=== PATIENT | male | born 1965 | race Caucasian/White ===

== ENCOUNTER 2018-05-20 17:58 | Observation (INO) ==
--- NOTE | 2018-05-20 18:15 | Emergency Department Note ---
Disposition Clinical Impression: Chest pain Qualifiers: Chest pain type: unspecified Qualified Code(s): R07.9 - Chest pain, unspecified Disposition: Admitted As Inpatient Condition: Undetermined Referrals: Kinjal Kowalski CNP [Primary Care Provider] - Forms: ED Satisfaction Letter Time of Disposition: 19:33 Chest Pain HPI - General Chief Complaint: ED Chest Pain Stated Complaint: Chest Pain Time Seen by Provider: 05/20/18 18:07 Source: patient, EMS Mode of arrival: EMS Limitations: no limitations Vital Signs Reviewed: Yes Nursing Notes Reviewed: Yes - History of Present Illness HPI Narrative: 52-year-old male with history of hypertension, hyperlipidemia, CAD, as the emergency department if your chest pain with associated shortness of breath. The patient states he took 2 nitroglycerin and aspirin. He states his pain is prior to resolved at this time. The patient states he went to get checked out for further evaluation. Patient denies any unilateral leg swelling, recent surgeries or immobilizations, hemoptysis, history DVT or PE. Patient is resting comfortably in the room at this time without any chest pain. Patient denies any other complaints. - Related Data Home Medications Medication Instructions Recorded Confirmed Atorvastatin [Lipitor] 20 mg PO HS 11/25/14 07/09/17 Diazepam [Valium] 10 mg PO TID 11/25/14 07/09/17 Gabapentin [Neurontin] 800 mg PO QID 11/25/14 07/09/17 Insulin Glargine,Hum.rec.anlog 60 unit SQ HS 11/25/14 07/09/17 [Lantus Solostar] Metformin [Glucophage] 1,000 mg PO BID 11/25/14 07/09/17 OxyCODONE/APAP 10/325 [Percocet 1 tab PO Q4H PRN 11/25/14 07/09/17 10/325 MG] Chlorthalidone 25 mg PO DAILY 02/26/16 07/09/17 Insulin ASPART [NovoLOG] 10 unit SQ TIDWM 02/26/16 07/09/17 Lisinopril [Zestril] 20 mg PO DAILY 02/26/16 07/09/17 Metoprolol [Lopressor] 100 mg PO BID 02/26/16 07/09/17 Propranolol HCl [Inderal LA] 160 mg PO DAILY 02/26/16 07/09/17 Aspirin 325 mg PO DAILY 03/10/17 07/09/17 Dicyclomine [Bentyl] 10 mg PO TID 03/10/17 07/09/17 Pantoprazole Sodium [Protonix] 40 mg PO BID 03/10/17 07/09/17 Paroxetine HCl [Paxil] 40 mg PO DAILY 03/10/17 07/09/17 Ziprasidone HCl [Geodon] 80 mg PO BID 03/10/17 07/09/17 Previous Rx's Medication Instructions Recorded Clindamycin [Cleocin] 300 mg PO TID #60 capsule 03/27/17 Clindamycin [Cleocin] 150 mg PO Q6HR #40 capsule 07/09/17 cephALEXin [Keflex] 1,000 mg PO BID #40 capsule 07/09/17 Sucralfate [Carafate] 1 gm PO QID #400 ml 10/09/17 Allergies Allergy/AdvReac Type Severity Reaction Status Date / Time Iodinated Contrast- Oral and Allergy Vomiting Verified 07/09/17 19:48 IV Dye [Iodinated Contrast Media - IV Dye] Penicillins Allergy Swelling Verified 07/09/17 19:48 of the Eye All systems ED: reviewed and negative except as stated. Constitutional: Denies: fever, chills, weakness ENT ED: Denies: dysphagia Cardiovascular: Reports: chest pain. Denies: dyspnea on exertion, edema, syncope Respiratory: Denies: cough, dyspnea, sputum production Gastrointestinal: Denies: abdominal pain, nausea, vomiting Genitourinary: Denies: urgency, dysuria Musculoskeletal: Denies: back pain Integumentary: Denies: rash Neurological: Denies: headache Chest Pain PMH - Past Medical History Medical history: Reports: arthritis, COPD, diabetes, hyperlipidemia, hypertension, other Surgical history: Reports: other (Prostate surgery, colonoscopy with polypectomy, negative cardiac catheterization) Psychiatric history: Reports: anxiety, bipolar, depression, panic disorder, schizophrenia - Social History Smoking Status: Never smoker Alcohol use: Reports: occasionally Drug use: Reports: none Physical Exam - General Limitations: no limitations General appearance: alert, in no apparent distress - Head Head exam: atraumatic, normocephalic, normal inspection - Eye Eye exam: Present: normal appearance, PERRL, EOMI - ENT ENT exam: normal exam, normal oropharynx, mucous membranes moist - Neck Neck exam: Present: normal inspection, full ROM, trachea midline - Chest Chest inspection: Present: normal inspection, symmetric chest wall rise - Respiratory Respiratory exam: Present: normal lung sounds bilaterally - Cardiovascular Cardiovascular exam: Present: regular rate, normal rhythm, normal heart sounds - Abdominal Exam Abdominal exam: Present: soft, Non-Tender. Absent: tenderness, distention, guarding, rebound, rigidity - Extremities Exam Extremities exam: Present: normal inspection, full ROM. Absent: tenderness, pe ck edema - Neurological Exam Neurological exam: Present: alert, oriented X3 - Skin Skin exam: Present: warm, dry, intact, normal color Course Vital Signs Temperature 98.8 F 05/20/18 18:16 Pulse Rate 93 05/20/18 18:16 Respiratory Rate 15 05/20/18 18:16 Blood Pressure 144/125 05/20/18 18:16 O2 Sat by Pulse Oximetry 99 05/20/18 18:16 Temperature 98.8 F 05/20/18 18:16 Pulse Rate 93 05/20/18 18:16 Respiratory Rate 15 05/20/18 18:16 Blood Pressure 144/125 05/20/18 18:16 O2 Sat by Pulse Oximetry 99 05/20/18 18:16 Oxygen Delivery Oxygen Delivery Room Air Chest Pain - MDM Narrative Medical decision making narrative: Patient's workup in the emergency department demonstrates no acute process. Troponin and EKG demonstrated no elevation or changes. Patient's chest x-ray unremarkable. We will admit the patient to the hospitalist at this time for further workup and care. He is chest pain-free and receive aspirin here in the emergency department. Patient made aware and agrees to plan. No further questions or concerns noted. Accepted by Dr. Manriquez. - Lab Data Lab results reviewed: Yes I reviewed the patient's lab results. Result diagrams: 05/20/18 18:42 05/20/18 18:42 Lab Results 05/20/18 05/20/18 Range/Units 18:42 18:42 WBC 7.9 (4.3-11.1) K/mcL RBC 5.18 (4.19-5.50) M/mcL Hgb 15.3 (12.9-16.9) g/dL Hct 43.7 (37.5-50.1) % MCV 84.4 (83.0-100.0) fL MCH 29.5 (28.0-33.3) pg MCHC 35.0 (31.6-35.5) g/dL RDW 12.0 (11.5-14.5) % Plt Count 188 (140-400) K/mcL MPV 10.5 (9.4-12.4) fL Immature Gran % 0.1 (0-4) % Seg Neutrophils % 57.3 % Lymphocytes % 35.0 % Monocytes % 6.0 % Eosinophils % 1.1 % Basophils % 0.5 % Neutrophils # 4.5 (1.6-8.9) K/mcL Lymphocytes # 2.8 (0.6-4.6) K/mcL Monocytes # 0.5 (0.0-1.3) K/mcL Eosinophils # 0.1 (0.0-0.6) K/mcL Basophils # 0.0 (0.0-0.2) K/mcL Sodium 137 (136-145) mEq/L Potassium 3.1 L (3.5-5.1) mEq/L Chloride 101 (98-107) mEq/L Carbon Dioxide 24 (23-29) mEq/L BUN 9 (6-20) mg/dL Creatinine 1.06 (0.70-1.30) mg/dL Est GFR ( Amer) > 60 (> 60) Est GFR (Non-Af Amer) > 60 (> 60) BUN/Creatinine Ratio 8 (6-26) Glucose 149 H (70-105) mg/dL Calculated Osmolality 285 (280-300) Calcium 9.6 (8.6-10.3) mg/dL Troponin I < 0.03 (< 0.04) ng/mL - Radiology Data Radiology results reviewed: Yes I reviewed the patient's radiology results. Chest X-Ray 05/20/18 18:09 IMPRESSION: No acute cardiopulmonary disease. D/ / 05/20/2018 18:26:36 Ziggy Page MD / shaun Interpreting Provider: Ziggy Page MD - EKG Data EKG attestation: Yes I reviewed and interpreted this EKG. EKG results narrative: Heart rate 87 beats. Normal sinus rhythm. No ST elevation or ST depression noted. No acute changes. Attestation Statement - Attestation Attestation: I, Filiberto Benjamin DO, examined this patient [id number] and my medical decision-making was reviewed with Deniz Vuong DO, Resident Physician. I agree with the documented findings, disposition and treatment plan as described except to the extent set forth below. Please see my progress notes for details.
--- NOTE | 2018-05-20 18:47 | Emergency Department Note ---
Disposition Clinical Impression: Chest pain Qualifiers: Chest pain type: unspecified Qualified Code(s): R07.9 - Chest pain, unspecified Disposition: Admitted As Inpatient Condition: Fair Referrals: Kinjal Kowalski CNP [Advanced Practice Nurse] - Forms: ED Satisfaction Letter Time of Disposition: 19:36 General Adult HPI - General Chief complaint: ED Chest Pain Stated complaint: Chest Pain Time Seen by Provider: 05/20/18 18:07 Source: patient, EMS Mode of arrival: EMS Limitations: no limitations - History of Present Illness Pain Scale: 6 - Related Data Home Medications Medication Instructions Recorded Confirmed Atorvastatin [Lipitor] 20 mg PO HS 11/25/14 07/09/17 Diazepam [Valium] 10 mg PO TID 11/25/14 07/09/17 Gabapentin [Neurontin] 800 mg PO QID 11/25/14 07/09/17 Insulin Glargine,Hum.rec.anlog 60 unit SQ HS 11/25/14 07/09/17 [Lantus Solostar] Metformin [Glucophage] 1,000 mg PO BID 11/25/14 07/09/17 OxyCODONE/APAP 10/325 [Percocet 1 tab PO Q4H PRN 11/25/14 07/09/17 10/325 MG] Chlorthalidone 25 mg PO DAILY 02/26/16 07/09/17 Insulin ASPART [NovoLOG] 10 unit SQ TIDWM 02/26/16 07/09/17 Lisinopril [Zestril] 20 mg PO DAILY 02/26/16 07/09/17 Metoprolol [Lopressor] 100 mg PO BID 02/26/16 07/09/17 Propranolol HCl [Inderal LA] 160 mg PO DAILY 02/26/16 07/09/17 Aspirin 325 mg PO DAILY 03/10/17 07/09/17 Dicyclomine [Bentyl] 10 mg PO TID 03/10/17 07/09/17 Pantoprazole Sodium [Protonix] 40 mg PO BID 03/10/17 07/09/17 Paroxetine HCl [Paxil] 40 mg PO DAILY 03/10/17 07/09/17 Ziprasidone HCl [Geodon] 80 mg PO BID 03/10/17 07/09/17 Previous Rx's Medication Instructions Recorded Clindamycin [Cleocin] 300 mg PO TID #60 capsule 03/27/17 Clindamycin [Cleocin] 150 mg PO Q6HR #40 capsule 07/09/17 cephALEXin [Keflex] 1,000 mg PO BID #40 capsule 07/09/17 Sucralfate [Carafate] 1 gm PO QID #400 ml 10/09/17 Allergies Allergy/AdvReac Type Severity Reaction Status Date / Time Iodinated Contrast- Oral and Allergy Vomiting Verified 07/09/17 19:48 IV Dye [Iodinated Contrast Media - IV Dye] Penicillins Allergy Swelling Verified 07/09/17 19:48 of the Eye Constitutional: Denies: fever, chills, weakness ENT ED: Denies: dysphagia Cardiovascular: Reports: chest pain. Denies: dyspnea on exertion, edema, syncope Respiratory: Denies: cough, dyspnea, sputum production Gastrointestinal: Denies: abdominal pain, nausea, vomiting Genitourinary: Denies: urgency, dysuria Musculoskeletal: Denies: back pain Integumentary: Denies: rash Neurological: Denies: headache Past Medical History - Past Medical History Medical history: Reports: arthritis, COPD, diabetes, hyperlipidemia, hypertension, other Surgical history: Reports: other (Prostate surgery, colonoscopy with polypectomy, negative cardiac catheterization) Psychiatric history: Reports: anxiety, bipolar, depression, panic disorder, schizophrenia - Social History Smoking Status: Never smoker Smokeless Tobacco Status: No Alcohol use: Reports: occasionally Drug use: Reports: none Physical Exam - General Limitations: no limitations General appearance: alert, in no apparent distress Course Vital Signs Temperature 98.8 F 05/20/18 18:16 Pulse Rate 93 05/20/18 18:16 Respiratory Rate 15 05/20/18 18:16 Blood Pressure 144/125 05/20/18 18:16 O2 Sat by Pulse Oximetry 99 05/20/18 18:16 Temperature 98.8 F 05/20/18 18:16 Pulse Rate 93 05/20/18 18:16 Respiratory Rate 15 05/20/18 18:16 Blood Pressure 144/125 05/20/18 18:16 O2 Sat by Pulse Oximetry 99 05/20/18 18:16 Oxygen Delivery Oxygen Delivery Room Air Medical Decision Making - Lab Data Result diagrams: 05/20/18 18:42 05/20/18 18:42 Lab Results 05/20/18 05/20/18 Range/Units 18:42 18:42 WBC 7.9 (4.3-11.1) K/mcL RBC 5.18 (4.19-5.50) M/mcL Hgb 15.3 (12.9-16.9) g/dL Hct 43.7 (37.5-50.1) % MCV 84.4 (83.0-100.0) fL MCH 29.5 (28.0-33.3) pg MCHC 35.0 (31.6-35.5) g/dL RDW 12.0 (11.5-14.5) % Plt Count 188 (140-400) K/mcL MPV 10.5 (9.4-12.4) fL Immature Gran % 0.1 (0-4) % Seg Neutrophils % 57.3 % Lymphocytes % 35.0 % Monocytes % 6.0 % Eosinophils % 1.1 % Basophils % 0.5 % Neutrophils # 4.5 (1.6-8.9) K/mcL Lymphocytes # 2.8 (0.6-4.6) K/mcL Monocytes # 0.5 (0.0-1.3) K/mcL Eosinophils # 0.1 (0.0-0.6) K/mcL Basophils # 0.0 (0.0-0.2) K/mcL Sodium 137 (136-145) mEq/L Potassium 3.1 L (3.5-5.1) mEq/L Chloride 101 (98-107) mEq/L Carbon Dioxide 24 (23-29) mEq/L BUN 9 (6-20) mg/dL Creatinine 1.06 (0.70-1.30) mg/dL Est GFR ( Amer) > 60 (> 60) Est GFR (Non-Af Amer) > 60 (> 60) BUN/Creatinine Ratio 8 (6-26) Glucose 149 H (70-105) mg/dL Calculated Osmolality 285 (280-300) Calcium 9.6 (8.6-10.3) mg/dL Troponin I < 0.03 (< 0.04) ng/mL Attestation Statement - Attestation Attestation: I, Filiberto Benjamin DO, examined this patient [id number] and my medical decision-making was reviewed with Deniz Vuong DO, Resident Physician. I agree with the documented findings, disposition and treatment plan as described except to the extent set forth below. Please see my progress notes for details. 52-year-old male presents emergency room for evaluation of chest pain. Patient said the symptoms on and off for the last several hours. He took nitroglycerin at home. His had a cardiac catheterization in the past but never had stents placed. He had nitroglycerin provided to him at some other point but he does not remember why. Patient is currently denying shortness breath, fevers, chills. He is only describing chest pressure but not pain at this time. Denies any falls trauma or injury. He has not started any new medications. He has not traveled outside the country or had any prolonged immobilizations. No recent surgeries or injuries noted. Vital signs are stable and transported by EMS. Patient was not provided with any intervention. EKG and transport did not show any acute abnormality. Patient is only describing a pressure on arrival. On physical exam, the vital signs are stable. Patient is morbidly obese. Lungs are clear. Heart is regular. Abdomen is soft. No guarding no rigidity. No peritoneal symptoms. No pulsatile masses or lesions. Extremities are normal. No rashes noted at this time. Pulses are intact in the radial DP and PT distributions and are symmetrical bilaterally. Patient is resting comfortably in the bed not showing any acute signs of distress or symptom. Detailed workup will be completed with chest x-ray, EKG, CBC, chemistry, troponin. Definitive management will be established with potential admission the hospital secondary the anginal-like presentation. See detailed documentation the physical exam, medical intervention, medical decision-making disposition the resident physician's note. No critical care provider the patient's treatment course at t his time. 1915 Patient has negative troponin here. Chest pain has not been present throughout the entire treatment course. Patient does have risk factors with history of coronary artery disease and elevated blood pressure. Admission process was recommended secondary to the patient's presentation as well as his history along with risk factors. Patient accommodated this at this time. The hospitalist Dr. Desai reviewed the case. No other recommendations or concerns for repeat blood pressure will be added in the system to make sure there is no acute abnormalities. Patient otherwise stable. Patient will be monitored here in the emergency department until the admission process is completed
[2018-05-20 18:56] LABS: Basophils % 0.5 %; Eosinophils # 0.1 K/mcL (0.0-0.6); Eosinophils % 1.1 %; Hematocrit 43.7 % (37.5-50.1); Hemoglobin 15.3 g/dL (12.9-16.9); Immature Granulocytes % 0.1 % (0-4); Lymphocytes # 2.8 K/mcL (0.6-4.6); Mean Corpuscular Hemoglobin 29.5 pg (28.0-33.3); Mean Corpuscular Volume 84.4 fL (83.0-100.0); Mean Platelet Volume 10.5 fL (9.4-12.4); Monocytes # 0.5 K/mcL (0.0-1.3); Neutrophils # 4.5 K/mcL (1.6-8.9); Platelet Count 188 K/mcL (140-400); Red Blood Count 5.18 M/mcL (4.19-5.50); Segmented Neutrophils % 57.3 %
[2018-05-20 19:12] LABS: BUN/Creatinine Ratio 8 (6-26); Blood Urea Nitrogen 9 mg/dL (6-20); Calcium 9.6 mg/dL (8.6-10.3); Carbon Dioxide 24 mEq/L (23-29); Chloride 101 mEq/L (98-107); Glucose 149 mg/dL (70-105); Osmolality,Calculated 285 (280-300); Potassium 3.1 mEq/L (3.5-5.1); Sodium 137 mEq/L (136-145); eGFR For Non-African Americans > 60 (> 60)
[2018-05-20 19:14] LABS: Troponin I < 0.03 ng/mL (< 0.04)
[2018-05-20] MEDS ORDERED: Naloxone 0.4 MG/ML INJ IVP PRN (19:34)
[2018-05-20] MEDS ORDERED: Ondansetron 4 MG/2 ML VIAL IVP PRN (19:34)
[2018-05-20] MEDS ORDERED: Dextrose 4 GM Chewable Tablets PO PRN ×2 (19:40)
[2018-05-20] MEDS ORDERED: D5% in Water 1,000 ML IVC PRN (19:40)
[2018-05-20] MEDS ORDERED: *HR* Dextrose 50 % in Water (Syg) 50 ML SYRINGE IVP PRN (19:40)
[2018-05-20] MEDS ORDERED: Dextrose Gel 15 GM/37.5 ML TUBE PO PRN ×2 (19:40)
[2018-05-20] MEDS ORDERED: Nitroglycerin 0.4 MG TAB.SUBL SL PRN (19:43)
--- NOTE | 2018-05-20 19:50 | Internal Med History&Physical ---
Date of Encounter: 05/20/18 Time of Encounter: 19:47 Internal Medicine - H&P: HPI Chief complaint: Chest pain History of present illness: Mr. Hendrickson is a 52 year old male with a past medical history of COPD, history of nicotine abuse, diabetes mellitus type 2, obesity, hypertension, hyperlipidemia, anxiety, depression, bipolar, schizophrenia. Admitted to hospitalist service for evaluation of chest pain. He states that he was lying earlier today watching TV when he developed substernal chest pain which he described as pressure like, nonradiating associated with SOB. Reports no aggravating factors. Patient took 2 nitroglycerin and chest pressure improved briefly with each dose, but would return several minutes after. He also to several puffs of his inhaler. Symptoms resolved prior to arrival. Patient was evaluated for chest pain in 2014 at which time he underwent a left heart catheter which showed mild nonobstructive coronary artery disease. On initial evaluation in the ED, patient was afebrile, mildly hypertensive. Laboratory workup was notable for mild hypokalemia of 3.1, negative troponins. EKG was nonischemic and his chest x-ray was unremarkable. Admitted for ACS rule out. On my assessment, patient was chest pain free. Past Med Surg Social Fam HX - Past Medical History Medical history: arthritis, COPD, diabetes, hyperlipidemia, hypertension, other Additional medical history: IRREGULAR HEART BEAT. ENLARGED PROSATE Psychiatric history: anxiety, bipolar, depression, panic disorder, schizophrenia - Past Surgical History Surgical History: other (Prostate surgery, colonoscopy with polypectomy, negative cardiac catheterization) Additional surgical history: stimulator. colonscopy, POLYPS REMOVED. EGD. IRREGULAR HEART RYHTHM. OBESITY. PROSTATE SURGERY - Social History Smoking Status: Never smoker Smokeless Tobacco Status: No Alcohol use: occasionally Drug use: none - Family History Mother Living Status: Still Living Hx Family Cardiac Disorders: Yes (Hypertension) Father Living Status: Hx Family Cardiac Disorders: Yes ( due to MS) Internal Medicine - H&P: Meds Atorvastatin [Lipitor] 40 mg PO HS 11/25/14 [History] Gabapentin [Neurontin] 800 mg PO QID 11/25/14 [History] Metformin [Glucophage] 1,000 mg PO BID 11/25/14 [History] OxyCODONE/APAP 10/325 [Percocet 10/325 MG] 1 tab PO Q6H PRN 11/25/14 [History] Chlorthalidone 25 mg PO DAILY 02/26/16 [History] Lisinopril [Zestril] 20 mg PO DAILY 02/26/16 [History] Metoprolol [Lopressor] 100 mg PO BID 02/26/16 [History] Aspirin 325 mg PO DAILY 03/10/17 [History] Pantoprazole Sodium [Protonix] 40 mg PO DAILY 03/10/17 [History] Paroxetine HCl [Paxil] 40 mg PO DAILY 03/10/17 [History] Ziprasidone HCl [Geodon] 80 mg PO HS 03/10/17 [History] ALPRAZolam [Xanax 1 MG Tablet] 1 mg PO BID PRN 05/20/18 [History] Albuterol Sulfate [Albuterol Inhaler] 2 puff IH Q4HR PRN 05/20/18 [History] Benztropine Mesylate 1 mg PO DAILY 05/20/18 [History] Finasteride [Proscar] 1 tab PO DAILY 05/20/18 [History] HydrOXYzine Pamoate [Vistaril] 50 mg PO TID PRN 05/20/18 [History] [place] Carbonate 300 mg PO BID 05/20/18 [History] Nitroglycerin [Nitrostat] 0.4 mg SL Q5MIN PRN 05/20/18 [History] Tamsulosin HCl [Flomax] 0.4 mg PO HS 05/20/18 [History] Allergy/AdvReac Type Severity Reaction Status Date / Time Iodinated Contrast- Oral and Allergy Vomiting Verified 07/09/17 19:48 IV Dye [Iodinated Contrast Media - IV Dye] Penicillins Allergy Swelling Verified 07/09/17 19:48 of the Eye All Systems PM: A 10-system review of systems was performed and is negative for pertinent findings except as documented above in the HPI. - Constitutional Constitutional: no chills, no fever(s), no night sweats - EENT Eyes: no change in vision, no discharge, no pain, no photophobia Ears: no ear discharge, no ear pain, no tinnitus Nose, mouth and throat: no dysphagia, no nasal discharge, no neck pain, no sore throat - Cardiovascular Cardiovascular ROS IM: no chest pain, no diaphoresis, no dyspnea, no lightheadedness, no palpitations, no syncope - Respiratory Respiratory: no cough, no dyspnea, no wheezing, no excessive phlegm production - Gastrointestinal Gastrointestinal: no abdominal pain, no diarrhea, no hematemesis, no hematochezia, no melena, no nausea, no vomiting - Musculoskeletal Musculoskeletal ROS IM: no numbness, no tingling - Integumentary Integumentary IM: no rash, no unusual bruising - Neurological Neurological ROS: no confusion, no convulsions, no focal weakness, no numbness, no tingling, no tremor(s) - Hematologic/Lymphatic Hematologic/Lymphatic: no easy bruising - Constitutional Vitals: Temp Pulse Resp BP Pulse Ox 98.8 F 94 20 120/75 99 05/20/18 18:16 05/20/18 19:37 05/20/18 19:37 05/20/18 19:37 05/20/18 19:37 Exam: General: Alert and oriented x 3; lying in bed in no acute distress Skin:Normal color, no rash, no lesions. HEENT:EOM, pupils equal, round and reactive. Cardiovascular:Normal S1 & S2, no rubs, murmurs or gallops. No JVD. Pulse regular. Lungs:Normal breath sounds, no wheezes or crackles. Abdomen:Soft, non-tender, no rigidity. Extremities:No deformity, no edema or tenderness, no joint swelling or clubbing. Neurological:Normal cognition and motor skills. Pulses:Carotid and radial pulses normal +2. Rest of the physical exam is non contributory Internal Med - H&P Results - Labs CBC & Chem 7: 05/21/18 00:41 05/21/18 00:41 Labs: Short CBC 05/20/18 Range/Units 18:42 WBC 7.9 (4.3-11.1) K/mcL Hgb 15.3 (12.9-16.9) g/dL Hct 43.7 (37.5-50.1) % Plt Count 188 (140-400) K/mcL Neutrophils # 4.5 (1.6-8.9) K/mcL BMP 05/20/18 18:42 Sodium 137 Potassium 3.1 L Chloride 101 Carbon Dioxide 24 BUN 9 Creatinine 1.06 Glucose 149 H Calcium 9.6 Cardiac Enzymes 05/20/18 Range/Units 18:42 Troponin I < 0.03 (< 0.04) ng/mL - Impressions ITS Impressions Chest X-Ray 05/20/18 18:09 IMPRESSION: No acute cardiopulmonary disease. D/ / 05/20/2018 18:26:36 Ziggy Page MD / shaun Interpreting Provider: Ziggy Page MD - Assessment and plan (1) Chest pain Current Visit: Yes Status: Acute Assessment and plan: Chest pain resolved after taking nitroglycerin in the setting of mild nonobstructive coronary artery disease based on previous left heart catheter in 2014. Initial troponin and EKG were unremarkable. Chest x-ray also unremarkable. -Trend troponin -Echocardiogram -Nuclear stress test if troponins remain negative. -Consider cardiology consult Qualifiers: Chest pain type: unspecified Qualified Code(s): R07.9 - Chest pain, unspecified (2) Hypokalemia Current Visit: Yes Status: Acute Assessment and plan: Potassium of 3.1. No evidence of EKG changes. Patient received 40 mEq in the ED. -We will continue to replete as needed and monitor. (3) Hypertension Current Visit: Yes Status: Acute Assessment and plan: Patient presented with a blood pressure 144/125. Currently on a beta dereck. Repeat blood pressure 120/75. -Continue with home antihypertensives. Monitor blood pressure. Qualifiers: Hypertension type: essential hypertension Qualified Code(s): I10 - Essential (primary) hypertension (4) Hyperlipidemia Current Visit: Yes Status: Acute Assessment and plan: Continue home statin Qualifiers: Hyperlipidemia type: unspecified Qualified Code(s): E78.5 - Hyperlipidemia, unspecified (5) COPD (chronic obstructive pulmonary disease) Current Visit: Yes Status: Acute Assessment and plan: No evidence of an acute exacerbation. -continue with home inhaler PRN Qualifiers: COPD type: unspecified COPD Qualified Code(s): J44.9 - Chronic obstructive pulmonary disease, unspecified (6) Coronary artery disease Current Visit: No Status: Acute Assessment and plan: History of mild nonobstructive coronary artery disease based on left heart catheter in 2014. Currently on optimal medical management. -We will continue with home medications. Qualifiers: Coronary Disease-Associated Artery/Lesion type: [place] artery [place] vs. transplanted heart: [place] heart Associated angina: without angina Qualified Code(s): I25.10 - Atherosclerotic heart disease of [place] coronary artery without angina pectoris (7) IDDM (insulin dependent diabetes mellitus) Current Visit: No Status: Chronic Assessment and plan: Acu-checks. SSI; Diabetic diet (8) DVT prophylaxis Current Visit: Yes Status: Acute Assessment and plan: Subcutaneous heparin - Time Spent With Patient Total time spent is greater than 50% in coordination of care (as documented) at patient's floor/unit and/or counseling patient:
[2018-05-20] MEDS: Insulin LISPRO 300 UNITS/3 ML VIAL SQ SCH (21:15)
[2018-05-20] MEDS: *HR* Heparin 5,000 UNIT/ML VIAL SQ SCH (21:18)
[2018-05-21 01:41] LABS: Basophils % 0.4 %; Eosinophils # 0.1 K/mcL (0.0-0.6); Eosinophils % 1.3 %; Hematocrit 40.1 % (37.5-50.1); Hemoglobin 13.8 g/dL (12.9-16.9); Immature Granulocytes % 0.1 % (0-4); Lymphocytes # 2.2 K/mcL (0.6-4.6); Mean Corpuscular HGB Conc 34.4 g/dL (31.6-35.5); Mean Corpuscular Hemoglobin 29.6 pg (28.0-33.3); Mean Corpuscular Volume 86.1 fL (83.0-100.0); Monocytes # 0.4 K/mcL (0.0-1.3); Monocytes % 5.5 %; Neutrophils # 4.3 K/mcL (1.6-8.9); Platelet Count 164 K/mcL (140-400); Red Blood Count 4.66 M/mcL (4.19-5.50); Red Cell Distribution Width 12.1 % (11.5-14.5); Segmented Neutrophils % 61.7 %
[2018-05-21 01:49] LABS: Prothrombin Time 11.5 Seconds (9.4-12.1)
[2018-05-21 01:50] LABS: Alanine Aminotransferase 20 Units/L (7-52); Albumin 3.8 g/dL (3.5-5.7); Albumin/Globulin Ratio 1.2 (1.1-2.2); Alkaline Phosphatase 41 Units/L (34-104); Aspartate Amino Transferase 15 Units/L (13-39); BUN/Creatinine Ratio 10 (6-26); Bilirubin,Total 0.5 mg/dL (0.3-1.0); Blood Urea Nitrogen 10 mg/dL (6-20); Calcium 9.1 mg/dL (8.6-10.3); Carbon Dioxide 26 mEq/L (23-29); Chloride 98 mEq/L (98-107); Globulin 3.1 g/dL (2.4-3.5); Glucose 206 mg/dL (70-105); Magnesium 1.7 mg/dL (1.6-2.6); Osmolality,Calculated 283 (280-300); Sodium 134 mEq/L (136-145); Total Protein 6.9 g/dL (6.4-8.9); eGFR For Non-African Americans > 60 (> 60)
[2018-05-21] MEDS ORDERED: ALPRAZolam 1 MG TABLET PO PRN (02:21)
[2018-05-21] MEDS: Metoprolol 100 MG TABLET PO SCH ×3 (02:25→21:02)
[2018-05-21] MEDS: Lithium Carbonate 300 MG CAPSULE PO SCH ×2 (02:27→12:16)
[2018-05-21] MEDS: *HR* Heparin 5,000 UNIT/ML VIAL SQ SCH ×3 (05:46→21:02)
[2018-05-21] MEDS: Insulin LISPRO 300 UNITS/3 ML VIAL SQ SCH ×3 (07:43→17:01)
[2018-05-21 08:14] LABS: Estimated Average Glucose 143 mg/dl; Hemoglobin A1C 6.6 %
[2018-05-21] MEDS ORDERED: Ziprasidone 80 MG CAPSULE PO SCH (09:00)
[2018-05-21] MEDS ORDERED: Regadenoson 0.4 MG/5 ML SYRINGE IVP ONE (09:40)
[2018-05-21] MEDS ORDERED: Potassium Chloride 20 MEQ, Lidocaine 1% 2 ML in D5% in Water 250 ML IVPB ONE (10:38)
[2018-05-21] MEDS: Gabapentin 400 MG CAPSULE PO SCH ×2 (12:05→12:16)
[2018-05-21] MEDS: Aspirin 325 MG TABLET PO SCH (12:16)
[2018-05-21] MEDS: Lisinopril 20 MG TABLET PO SCH (12:16)
[2018-05-21] MEDS: Finasteride 5 MG TABLET PO SCH (12:16)
--- NOTE | 2018-05-21 14:16 | Internal Med Progress Note ---
Hospitalist Progress Note - Encounter Date of Encounter: 05/21/18 Time of Encounter: 14:15 - Subjective Interval History: Patient was seen and examined at bedside currently patient is sleeping he arouses to verbal command denies any chest pain or shortness of breath I did discuss treatment plan with the patient who verbalized understanding. He is on his first day of 2 day stress test - Exam Vitals: Temp Pulse Resp BP Pulse Ox 98.1 F 77 18 126/68 98 05/21/18 12:15 05/21/18 12:15 05/21/18 12:15 05/21/18 12:15 05/21/18 12:15 Exam: General: Alert and oriented x 3; lying in bed in no acute distress-morbidly obese Skin:Normal color, no rash, no lesions. HEENT:EOM, pupils equal, round and reactive. Cardiovascular:Normal S1 & S2, no rubs, murmurs or gallops. No JVD. Pulse regular. Lungs:Normal breath sounds, no wheezes or crackles. Abdomen:Soft, obese non-tender, no rigidity. Extremities:No deformity, no edema or tenderness, no joint swelling or clubbing. Neurological:Normal cognition and motor skills. Pulses:Carotid and radial pulses normal +2. Rest of the physical exam is non contributory - Assessment and Plan (1) IDDM (insulin dependent diabetes mellitus) Current Visit: No Status: Chronic Assessment and Plan: Acu-checks. SSI; Diabetic diet (2) Coronary artery disease Current Visit: No Status: Acute Assessment and Plan: History of mild nonobstructive coronary artery disease based on left heart catheter in 2014. Currently on optimal medical management. -We will continue with home medications. (3) Chest pain Current Visit: Yes Status: Acute Assessment and Plan: Chest pain resolved after taking nitroglycerin in the setting of mild nonobstructive coronary artery disease based on previous left heart catheter in 2015. Initial troponin and EKG were unremarkable. Chest x-ray also unremarkable. -Trend troponin-troponins have been negative -Echocardiogram Impressions: All LV mazariegos not well visualized, unable to accurately assess LVEF and wall motion. Normal LV diastolic function. Normal right ventricular structure and function. Mild tricuspid regurgitation. Unable to estimate RVSP due to lack of IVC visualization. Recommend limited Echo with definity for LVEF and wall motion. -Nuclear stress test if troponins remain negative.-Patient completed first day of 2 day stress -Consult cardiology as needed (4) Hypokalemia Current Visit: Yes Status: Acute Assessment and Plan: Potassium of 3.1. No evidence of EKG changes. Patient received 40 mEq in the ED. -We will continue to replete as needed and monitor.-Potassium is 3 this a.m. we will give a K rider and check magnesium (5) DVT prophylaxis Current Visit: Yes Status: Acute Assessment and Plan: Subcutaneous heparin (6) Hypertension Current Visit: Yes Status: Acute Assessment and Plan: Patient presented with a blood pressure 144/125. Currently on a beta dereck. Repeat blood pressure 120/75. -Continue with home antihypertensives. Monitor blood pressure. (7) Hyperlipidemia Current Visit: Yes Status: Acute Assessment and Plan: Continue home statin (8) COPD (chronic obstructive pulmonary disease) Current Visit: Yes Status: Acute Assessment and Plan: No evidence of an acute exacerbation. -continue with home inhaler PRN - Time Spent with Patient Total time spent is greater than 50% in coordination of care (as documented) at patient's floor/unit and/or counseling patient: Internal Medicine: Result - Labs CBC & Chem 7: 05/21/18 00:41 05/21/18 00:41 Labs: Short CBC 05/20/18 05/21/18 Range/Units 18:42 00:41 WBC 7.9 7.0 (4.3-11.1) K/mcL Hgb 15.3 13.8 D (12.9-16.9) g/dL Hct 43.7 40.1 (37.5-50.1) % Plt Count 188 164 (140-400) K/mcL Neutrophils # 4.5 4.3 (1.6-8.9) K/mcL BMP 05/20/18 05/21/18 18:42 00:41 Sodium 137 134 L Potassium 3.1 L 3.0 L Chloride 101 98 Carbon Dioxide 24 26 BUN 9 10 Creatinine 1.06 1.04 Glucose 149 H 206 H Calcium 9.6 9.1 Cardiac Enzymes 05/20/18 05/21/18 Range/Units 18:42 00:41 Troponin I < 0.03 < 0.03 (< 0.04) ng/mL Liver Function 05/21/18 Range/Units 00:41 Total Bilirubin 0.5 (0.3-1.0) mg/dL AST 15 (13-39) Units/L ALT 20 (7-52) Units/L Alkaline Phosphatase 41 (34-104) Units/L Albumin 3.8 (3.5-5.7) g/dL - ABG Interpretation ABG results: PT/INR, D-dimer PT 11.5 Seconds (9.4-12.1) 05/21/18 00:41 - Impressions Impressions Chest X-Ray 05/20/18 18:09 IMPRESSION: No acute cardiopulmonary disease. D/ / 05/20/2018 18:26:36 Ziggy Page MD / shaun Interpreting Provider: Ziggy Page MD Echocardiogram 05/21/18 19:42 Impressions: All LV mazariegos not well visualized, unable to accurately assess LVEF and wall motion. Normal LV diastolic function. Normal right ventricular structure and function. Mild tricuspid regurgitation. Unable to estimate RVSP due to lack of IVC visualization. Recommend limited Echo with definity for LVEF and wall motion. Left Ventricular Wall Motion: Rest Echo Findings The apex, apical inferior, mid inferior, basal inferior, apical anterior, mid anterior, basal anterior, apical septal, mid inferior septal, basal inferior septal, apical lateral, mid anterior lateral and basal anterior lateral mazariegos were not visualized. All other wall segments showed normal motion. Findings: Study Quality * Technically sub-optimal due to poor echocardiographic windows. ECG Findings * Normal sinus rhythm. Left Ventricle * All LV mazariegos not well visualized, unable to accurately assess LVEF and wall motion. * Normal LV chamber size, wall thickness. * Normal left ventricular diastolic function. Right Ventricle * Normal right ventricular structure and function. Left Atrium * Normal left atrial size. Right Atrium * Normal right atrial size. Interatrial Septum * Interatrial septum not well evaluated. Aortic Valve * Aortic valve not well visualized. * No aortic stenosis. * No aortic regurgitation. Mitral Valve * Normal mitral valve structure. * No mitral stenosis. * Trace mitral regurgitation. Tricuspid Valve * Normal tricuspid valve structure. * No tricuspid stenosis. * Mild tricuspid regurgitation. * Unable to estimate RVSP due to lack of IVC visualization. Pulmonic Valve * Pulmonic valve is not well visualized. * No pulmonic stenosis. * No pulmonic regurgitation. Aorta * Normally sized aortic root. Pericardium * The pericardium appears normal. IVC * The IVC is not well evaluated. Consult Discharge Plan - Plan Referrals: Kinjal Kowalski CNP [Primary Care Provider] - (2) Coronary artery disease Qualifiers: Coronary Disease-Associated Artery/Lesion type: [place] artery [place] vs. transplanted heart: [place] heart Associated angina: without angina Qualified Code(s): I25.10 - Atherosclerotic heart disease of [place] coronary artery without angina pectoris (3) Chest pain Qualifiers: Chest pain type: unspecified Qualified Code(s): R07.9 - Chest pain, unspecified (6) Hypertension Qualifiers: Hypertension type: essential hypertension Qualified Code(s): I10 - Essential (primary) hypertension (7) Hyperlipidemia Qualifiers: Hyperlipidemia type: unspecified Qualified Code(s): E78.5 - Hyperlipidemia, unspecified (8) COPD (chronic obstructive pulmonary disease) Qualifiers: COPD type: unspecified COPD Qualified Code(s): J44.9 - Chronic obstructive pulmonary disease, unspecified
[2018-05-21] MEDS ORDERED: *HR* OxyCODONE/APAP 10/325 TABLET PO PRN (14:57)
[2018-05-21] MEDS ORDERED: 0.9 % Sodium Chloride 1,000 ML IVC SCH (16:15)
[2018-05-21 16:39] LABS: ABG Base Excess 2 mEq/L (-2 to 3); ABG HCO3 27 mEq/L (21-27); ABG Oxygen Saturation 93 % (95-98); ABG PCO2 44 mmHg (35-45); ABG PO2 66 mmHg (85-104); ABG TCO2 28 mEq/L (20-26)
--- NOTE | 2018-05-21 17:19 | Event Note ---
Date of Encounter: 05/21/18 Time of Encounter: 17:15 Was 5 per nursing staff the patient was difficult to arouse. Upon assessment patient is currently on CPAP he is arousable however continually falls asleep attentiveness at patient up in bed however he continues to fall back into bed. Obtained ABG percent show pH 7.4 CO2 44 PO2 66 O2 saturation 93% patient was placed on BiPAP and continuous oxygen saturation monitoring. Review of medical record reveals patient received Geodon lithium Cogentin and Neurontin around 2:00 PM. I suspect the patient may not be taking medications at home and could not tolerate the combination. We will hold sedating medications I will give patient IV fluid and monitor his respiratory state and vital signs closely. Advised nursing to notify me of any changes in status
[2018-05-22 03:58] LABS: Basophils % 0.4 %; Eosinophils # 0.1 K/mcL (0.0-0.6); Eosinophils % 1.4 %; Hematocrit 39.6 % (37.5-50.1); Hemoglobin 13.5 g/dL (12.9-16.9); Immature Granulocytes % 0.2 % (0-4); Lymphocytes # 2.1 K/mcL (0.6-4.6); Lymphocytes % 25.2 %; Mean Corpuscular HGB Conc 34.1 g/dL (31.6-35.5); Mean Corpuscular Hemoglobin 29.2 pg (28.0-33.3); Mean Corpuscular Volume 85.5 fL (83.0-100.0); Mean Platelet Volume 10.5 fL (9.4-12.4); Monocytes # 0.4 K/mcL (0.0-1.3); Monocytes % 4.8 %; Neutrophils # 5.6 K/mcL (1.6-8.9); Platelet Count 164 K/mcL (140-400); Red Blood Count 4.63 M/mcL (4.19-5.50); Red Cell Distribution Width 12.4 % (11.5-14.5)
[2018-05-22 04:20] LABS: BUN/Creatinine Ratio 13 (6-26); Blood Urea Nitrogen 15 mg/dL (6-20); Calcium 9.1 mg/dL (8.6-10.3); Carbon Dioxide 26 mEq/L (23-29); Chloride 102 mEq/L (98-107); Glucose 148 mg/dL (70-105); Osmolality,Calculated 286 (280-300); Potassium 3.4 mEq/L (3.5-5.1); Sodium 136 mEq/L (136-145); eGFR For Non-African Americans > 60 (> 60)
[2018-05-22] MEDS: *HR* Heparin 5,000 UNIT/ML VIAL SQ SCH ×2 (05:37→12:22)
[2018-05-22] MEDS: Insulin LISPRO 300 UNITS/3 ML VIAL SQ SCH ×2 (10:01→12:22)
[2018-05-22] MEDS: Finasteride 5 MG TABLET PO SCH (10:06)
[2018-05-22] MEDS: Aspirin 325 MG TABLET PO SCH (10:06)
[2018-05-22] MEDS: Metoprolol 100 MG TABLET PO SCH (10:07)
[2018-05-22] MEDS: Lisinopril 20 MG TABLET PO SCH (10:07)
[2018-05-22] MEDS ORDERED: 0.9 % Sodium Chloride 1,000 ML IVC SCH (11:00)
[2018-05-22 11:56] VITALS: BP 90/55
--- NOTE | 2018-05-22 15:21 | Discharge Summary ---
- NOTES TO OUTPATIENT PROVIDER Notes to Outpatient Provider: He underwent cardiac stress test with no ischemia or infarct gaited EF of 69%. Patient will need follow-up with primary care provider concerning home health Orders not resulted at time of discharge: Pending orders 05/21/18 09:47 NM vero perf SPECT multi [NM] Routine 05/22/18 08:56 EV limited echo w enhance Routine Date of Encounter: 05/22/18 Time of Encounter: 15:18 - Discharge Diagnosis (1) IDDM (insulin dependent diabetes mellitus) Priority: Secondary Status: Chronic (2) Coronary artery disease Priority: Secondary Status: Acute Qualifiers: Coronary Disease-Associated Artery/Lesion type: [place] artery [place] vs. transplanted heart: [place] heart Associated angina: without angina Qualified Code(s): I25.10 - Atherosclerotic heart disease of [place] coronary artery without angina pectoris (3) Chest pain Priority: Primary Status: Acute Qualifiers: Chest pain type: unspecified Qualified Code(s): R07.9 - Chest pain, unspecified (4) Hypokalemia Priority: Secondary Status: Acute (5) Hypertension Priority: Secondary Status: Acute Qualifiers: Hypertension type: essential hypertension Qualified Code(s): I10 - Essential (primary) hypertension (6) Hyperlipidemia Priority: Secondary Status: Acute Qualifiers: Hyperlipidemia type: unspecified Qualified Code(s): E78.5 - Hyperlipidemia, unspecified (7) COPD (chronic obstructive pulmonary disease) Priority: Secondary Status: Acute Qualifiers: COPD type: unspecified COPD Qualified Code(s): J44.9 - Chronic obstructive pulmonary disease, unspecified Hospital course: Mr. Hendrickson is a 52 year old male past medical history of COPD LSA history of nicotine abuse diabetes type 2 obesity hypertension hyperlipidemia anxiety depression bipolar schizophrenia. Patient was seen as [facility] with complaints of chest pain that occurred at rest he did undergo a left heart catheter in 2014 which showed mild nonobstructive coronary artery disease. Laboratory workup was notable for hypokalemia troponins were negative [address]-T wave abnormalities chest x-ray was unremarkable. Patient was given potassium replacement echocardiogram was completed he did undergo a cardiac stress test which was negative for any ischemia or infarct. During admission patient did have an episode of hypoxia and was lethargic secondary to medication. He was placed on BiPAP given IV fluids and return to baseline a few hours later. Patient states that he has not been taking his Neurontin 4 times a day to 2 times a day which I suspect initiated lethargy and hypoxia. travel services professional was consulted and it was reported that patient did not have any electricity or running water in his camper. Patient states he currently lives with his brother and is in the process of establishing his camper he expects to have running water and electricity within the next week. Advised patient to follow-up with primary care provider since this provider knows him best and can adjust medications accordingly. Advised patient to continue with CPAP and to return to the emergency room if he experiences any chest pain. Patient verbalized understanding currently he is hemodynamically stable and he is ready for discharge at this time. - Time Spent with Patient Total time spent providing and/or coordinating discharge services: - Discharge Medications Home Medications: Atorvastatin [Lipitor] 40 mg PO HS 11/25/14 [History] Gabapentin [Neurontin] 800 mg PO QID 11/25/14 [History] Metformin [Glucophage] 1,000 mg PO BID 11/25/14 [History] OxyCODONE/APAP 10/325 [Percocet 10/325 MG] 1 tab PO Q6H PRN 11/25/14 [History] Chlorthalidone 25 mg PO DAILY 02/26/16 [History] Lisinopril [Zestril] 20 mg PO DAILY 02/26/16 [History] Metoprolol [Lopressor] 100 mg PO BID 02/26/16 [History] Aspirin 325 mg PO DAILY 03/10/17 [History] Pantoprazole Sodium [Protonix] 40 mg PO DAILY 03/10/17 [History] Paroxetine HCl [Paxil] 40 mg PO DAILY 03/10/17 [History] Ziprasidone HCl [Geodon] 80 mg PO HS 03/10/17 [History] ALPRAZolam [Xanax 1 MG Tablet] 1 mg PO BID PRN 05/20/18 [History] Albuterol Sulfate [Albuterol Inhaler] 2 puff IH Q4HR PRN 05/20/18 [History] Benztropine Mesylate 1 mg PO DAILY 05/20/18 [History] Finasteride [Proscar] 1 tab PO DAILY 05/20/18 [History] HydrOXYzine Pamoate [Vistaril] 50 mg PO TID PRN 05/20/18 [History] Drain Carbonate 300 mg PO BID 05/20/18 [History] Nitroglycerin [Nitrostat] 0.4 mg SL Q5MIN PRN 05/20/18 [History] Tamsulosin HCl [Flomax] 0.4 mg PO HS 05/20/18 [History] Allergies/Adverse Reactions: Allergy/AdvReac Type Severity Reaction Status Date / Time Iodinated Contrast- Oral and Allergy Vomiting Verified 07/09/17 19:48 IV Dye [Iodinated Contrast Media - IV Dye] Penicillins Allergy Swelling Verified 07/09/17 19:48 of the Eye Date of admission: 05/20/18 19:38 Primary care physician: Kinjal Kowalski Consults: 05/20/18 21:14 Consult to Cloth Worker [CONS] Routine Reason for SW Consult: patient lives in [facility], no help at home. 05/21/18 17:46 Consult to Physical Therapy [CONS] Routine Comment: Evaluate, develop and implement POC Reason for Consult: weakness Does patient have active BEDREST order?: No Is patient medically & hemodynamically stable?: Yes Patient assessed for mobility or mobilized this visit?: No 05/21/18 17:48 Consult to Occupational Therapy [CONS] Routine Comment: Evaluate, develop and implement POC Reason for Consult: weakness Does patient have active BEDREST order?: No Is patient medically & hemodynamically stable?: Yes Patient assessed for mobility or mobilized this visit?: No Discharging clinician: Pauly Michaud Anticipated date of discharge: 05/22/18 - Constitutional Vitals: Temp Pulse Resp BP Pulse Ox 97.4 F L 110 15 90/55 94 05/22/18 11:49 05/22/18 11:49 05/22/18 11:49 05/22/18 11:49 05/22/18 11:49 Exam: Skin: Free of rash and discoloration. Eyes: Sclera is white. There is no discharge from eyes. ENMT: Oral/pharyngeal mucosa is normal in appearance. There is no discharge from nose or ears. Respiratory: Normal breath sounds with no crackles and wheezes bilaterally. CV: Heart is regular with no gallop or murmur. GI: Morbidly obese Abdomen is flat and soft with no palpable mass or visceromegaly. : There is no tenderness in patient's flanks bilaterally. Neuro exam: He has good strength in upper and lower extremities. He has normal eye movements. Psychiatric: He has normal affect. His thought process is appropriate to the situation. - Patient Status Disposition: Home, Self-Care Condition: Fair Functional capacity at discharge: uses cane/walker Overall status at discharge: patient is back to baseline - Discharge Instructions Instructions: Chest Pain (DC), Chronic Obstructive Pulmonary Disease (DC) Follow Up With: Kinjal Kowalski, [place] [Primary Care Provider] - - Diet and Activity Activity: increase activity as tolerated Diet: advance to your usual diet
--- NOTE | 2018-05-24 00:50 | Electrocardiograph Report ---
[address] [place], [place] [address] Test Date: 2018-05-20 Pat Name: Anton Hendrickson Department: [id number] Room: 3B23 Gender: M Conciliator: : 1965 Requested By: Ric Vuong Order Number: [id number] Reading MD: Elizabeth Alonso Measurements Intervals [place] Rate: 87 P: 44 RI: 146 QRS: 14 QRSD: 88 T: 39 QT: 367 QTc: 442 Interpretive Statements Sinus rhythm Low voltage, precordial leads Electronically Signed On 05-24-2018 0:49:21 EST by Elizabeth Alonso
== END 2018-05-22 16:45 | disposition home or self-care (01) ==
LOC: 3BNU 17:58 → EMEROOARM 17:58 → 3BNU 20:29
PROVIDERS: ADMIT Internal Medicine; ATTEND Internal Medicine

== ENCOUNTER 2021-01-17 17:13 | Inpatient (IN) ==
[2021-01-17] MEDS ORDERED: Naloxone 0.4 MG/ML INJ IVP PRN (20:34)
[2021-01-17] MEDS ORDERED: Ondansetron 4 MG/2 ML VIAL IVP PRN (20:34)
[2021-01-17] MEDS ORDERED: Melatonin 3 MG TABLET PO PRN (20:34)
[2021-01-17] MEDS ORDERED: D5% in Water 1,000 ML IVC PRN (20:35)
[2021-01-17] MEDS ORDERED: *HR* Dextrose 50 % in Water (Syg) 50 ML SYRINGE IVP PRN (20:35)
[2021-01-17] MEDS ORDERED: Dextrose Gel 15 GM/37.5 ML TUBE PO PRN ×2 (20:35)
[2021-01-17] MEDS ORDERED: Morphine Sulfate 2 MG/ML SYRINGE IVP PRN (21:51)
[2021-01-18] MEDS: Insulin LISPRO 300 UNITS/3 ML VIAL SUBQ SCH ×5 (00:09→21:52)
[2021-01-18 01:14] LABS: Basophils # 0.1 K/mcL (0.0-0.2); Basophils % 0.9 %; Eosinophils # 0.1 K/mcL (0.0-0.6); Eosinophils % 2.2 %; Hematocrit 38.9 % (37.5-50.1); Hemoglobin 12.7 g/dL (12.9-16.9); Immature Granulocytes % 0.2 % (0-4); Lymphocytes # 2.3 K/mcL (0.6-4.6); Lymphocytes % 42.7 %; Mean Corpuscular HGB Conc 32.6 g/dL (31.6-35.5); Mean Corpuscular Hemoglobin 28.5 pg (28.0-33.3); Mean Corpuscular Volume 87.2 fL (83.0-100.0); Mean Platelet Volume 11.2 fL (9.4-12.4); Monocytes # 0.4 K/mcL (0.0-1.3); Monocytes % 7.4 %; Neutrophils # 2.5 K/mcL (1.6-8.9); Platelet Count 157 K/mcL (140-400); Red Blood Count 4.46 M/mcL (4.19-5.50); Red Cell Distribution Width 12.3 % (11.5-14.5); Segmented Neutrophils % 46.6 %; White Blood Count 5.4 K/mcL (4.3-11.1)
[2021-01-18 01:34] LABS: Estimated Average Glucose 143 mg/dl; Hemoglobin A1C 6.6 %
[2021-01-18 01:36] LABS: Alanine Aminotransferase 19 Units/L (7-52); Albumin 3.7 g/dL (3.5-5.7); Albumin/Globulin Ratio 1.4 (1.1-2.2); Alkaline Phosphatase 45 Units/L (34-104); Aspartate Amino Transferase 19 Units/L (13-39); BUN/Creatinine Ratio 10 (6-26); Bilirubin,Total 0.4 mg/dL (0.3-1.0); Blood Urea Nitrogen 9 mg/dL (6-20); Calcium 9.1 mg/dL (8.6-10.3); Carbon Dioxide 25 mEq/L (23-29); Chloride 107 mEq/L (98-107); Globulin 2.6 g/dL (2.4-3.5); Glucose 336 mg/dL (70-105); Magnesium 1.7 mg/dL (1.6-2.6); Osmolality,Calculated 298 (280-300); Phosphorous 2.8 mg/dL (2.7-4.5); Potassium 3.9 mEq/L (3.5-5.1); Sodium 138 mEq/L (136-145); Total Protein 6.3 g/dL (6.4-8.9); Troponin I < 0.03 ng/mL (< 0.04); eGFR For African Americans > 60 (> 60); eGFR For Non-African Americans > 60 (> 60)
[2021-01-18] MEDS: Acetaminophen 325 MG TABLET PO PRN ×2 (07:31→14:09)
[2021-01-18] MEDS: Aspirin Enteric Coated 81 MG Tablet PO SCH (09:58)
[2021-01-18] MEDS ORDERED: tiZANidine 4 MG TABLET PO PRN (13:43)
[2021-01-18] MEDS: Gabapentin 400 MG CAPSULE PO SCH ×2 (15:05→21:31)
[2021-01-18] MEDS ORDERED: Ziprasidone 80 MG CAPSULE PO SCH (18:00)
[2021-01-18] MEDS: *HR* OxyCODONE/APAP 5/325 TABLET PO PRN (18:13)
[2021-01-18] MEDS: ZIPRASIDONE PO SCH (18:52)
[2021-01-18] MEDS ORDERED: Divalproex Sodium 125 MG Sprinkle Capsule (DR) PO SCH (21:00)
[2021-01-19] MEDS ORDERED: Perflutren Lipid Microsphere 1.3 ML in 0.9 % Sodium Chloride 8.7 ML IVP PRN (07:52)
[2021-01-19] MEDS: Insulin LISPRO 300 UNITS/3 ML VIAL SUBQ SCH ×4 (08:26→20:33)
[2021-01-19] MEDS: Gabapentin 400 MG CAPSULE PO SCH ×3 (08:26→19:38)
[2021-01-19] MEDS: Aspirin Enteric Coated 81 MG Tablet PO SCH (08:26)
[2021-01-19] MEDS: *HR* OxyCODONE/APAP 5/325 TABLET PO PRN (08:30)
[2021-01-19] MEDS ORDERED: hydrOXYzine pamoate 25 MG CAPSULE PO PRN (12:21)
[2021-01-19] MEDS: lisinopriL 20 MG TABLET PO SCH (12:56)
[2021-01-19] MEDS: Primidone 50 MG TABLET PO SCH (12:56)
[2021-01-19] MEDS: Finasteride 5 MG TABLET PO SCH (12:57)
[2021-01-19] MEDS: *HR* OxyCODONE/APAP 10/325 TABLET PO PRN (14:22)
[2021-01-19] MEDS: ZIPRASIDONE PO SCH (17:14)
[2021-01-20 03:23] LABS: Basophils % 0.7 %; Eosinophils # 0.2 K/mcL (0.0-0.6); Eosinophils % 2.9 %; Hematocrit 41.8 % (37.5-50.1); Hemoglobin 14.2 g/dL (12.9-16.9); Immature Granulocytes % 0.2 % (0-4); Lymphocytes # 2.5 K/mcL (0.6-4.6); Lymphocytes % 45.4 %; Mean Corpuscular Hemoglobin 29.4 pg (28.0-33.3); Mean Corpuscular Volume 86.5 fL (83.0-100.0); Mean Platelet Volume 11.2 fL (9.4-12.4); Monocytes # 0.4 K/mcL (0.0-1.3); Monocytes % 6.4 %; Neutrophils # 2.4 K/mcL (1.6-8.9); Platelet Count 161 K/mcL (140-400); Red Blood Count 4.83 M/mcL (4.19-5.50); Red Cell Distribution Width 12.1 % (11.5-14.5); Segmented Neutrophils % 44.4 %; White Blood Count 5.5 K/mcL (4.3-11.1)
[2021-01-20 04:06] LABS: BUN/Creatinine Ratio 17 (6-26); Blood Urea Nitrogen 15 mg/dL (6-20); Calcium 9.3 mg/dL (8.6-10.3); Carbon Dioxide 28 mEq/L (23-29); Chloride 107 mEq/L (98-107); Glucose 165 mg/dL (70-105); Osmolality,Calculated 295 (280-300); Potassium 4.4 mEq/L (3.5-5.1); Sodium 140 mEq/L (136-145); eGFR For African Americans > 60 (> 60); eGFR For Non-African Americans > 60 (> 60)
[2021-01-20] MEDS ORDERED: Regadenoson 0.4 MG/5 ML SYRINGE IVP ONE (06:27)
[2021-01-20] MEDS: Insulin LISPRO 300 UNITS/3 ML VIAL SUBQ SCH ×2 (07:23→10:55)
[2021-01-20] MEDS ORDERED: Aspirin 325 MG TABLET PO SCH (09:00)
[2021-01-20] MEDS: Finasteride 5 MG TABLET PO SCH (09:09)
[2021-01-20] MEDS: Gabapentin 400 MG CAPSULE PO SCH (09:09)
[2021-01-20] MEDS: Primidone 50 MG TABLET PO SCH (09:10)
[2021-01-20] MEDS: lisinopriL 20 MG TABLET PO SCH (09:10)
[2021-01-20 09:15] VITALS: BP 149/82; PULSE 79; TEMP 98; O2SAT 98
[2021-01-20] MEDS: *HR* OxyCODONE/APAP 10/325 TABLET PO PRN (10:39)
== END 2021-01-20 11:12 | disposition home or self-care (01) | DRG 303 ==
LOC: 3BNU → SUATTDRO 19:28
PROVIDERS: ADMIT Pharmacist; ATTEND Internal Medicine